=== PATIENT | female | born 1985 | race Caucasian/White ===

== ENCOUNTER 2018-04-03 02:49 | Emergency (ER) | payer OTHER ==
[~2018-04-03] VITALS: Ht 165.1 cm; Wt 77.1 kg
[~2018-04-03 02:49] MED LIST: AMOXICILLIN250 MG PO; AMOXICILLIN500 M2 PO; AMOXICILLIN500 MG PO; ANAPROX DS550 MG PO; AUGMENTIN 875875 MG PO; BACTRIM DS 8001 TA1 PO; BENADRYL25 MG PO; Bactroban Oint22 GM T; CATAFLAM50 MG PO; CIPRO500 MG PO; CIPROFLOXACIN500 MG PO; CLEOCIN150 MG PO; CLINDAMYCIN300 MG PO; CORTISPORIN SOL10 M1 OT; DARVOCET N 1001 TAB PO; DOXYCYCLINE100 M2 PO; EC NAPROSYN500 MG PO; FIORICET 325 MG1 TAB PO; FLEXERIL5 MG PO; FLONASE ALLERG9.9 ML NS; HYDROCODONE BIT1 T11 PO; IBU800 MG PO; IMITREX100 MG PO; IMITREX50 MG PO; KEFLEX500 MG PO; KETOROLAC10 MG PO; MECLIZINE25 MG PO; MEDROL DOSEPAK4 MG PO; MOTRIN800 MG; MOTRIN800 MG PO; MUCINEX SINUS-1 EAC3 PO; Motrin,Rufen800 MG PO; NAPROSYN500 MG PO; NKHM; PEN-VEE K500 MG PO; PERCOCET 325 MG1 TA2 PO; PERIOGARD 473473 ML PO; PHENERGAN25 M1 PO; PHENERGAN25 MG R; PREDNISONE20 MG PO; PRENATAL1 TA1 PO; ROBITUSSIN AC 10 MG/ PO; SEPTRA DS 800 M1 TAB PO; SUDAFED 12HR120 MG PO; TORADOL10 MG PO; TRAMADOL HCL50 MG PO; TRAMADOL50 MG PO; TRIMOX500 MG PO; ULTRAM50 MG PO; VICO10300 PO; ZOFRAN ODT4 MG SL; ZOVIRAX800 MG PO
[2018-04-03 02:50] VITALS: BP 113/65
[2018-04-03] MEDS ORDERED: PENICILLIN VK500 MG PO (03:28)
[2018-04-03] MEDS ORDERED: PENICILLIN-VK500 M1 PO (03:30)
== END 2018-04-03 03:58 | disposition home or self-care (01) ==
LOC: ED 02:49
DX: K04.7 Periapical abscess without sinus (principal); F17.200 Nicotine dependence, unspecified, uncomplicated; G43.909 Migraine, unspecified, not intractable, without status migrainosus; Z98.51 Tubal ligation status

== ENCOUNTER 2018-10-16 00:07 | Emergency (ER) | payer OTHER ==
[~2018-10-16] VITALS: Ht 165.1 cm; Wt 76.7 kg
--- NOTE | ~2018-10-16 | EKG ---
[place], [place] ELECTROCARDIOGRAM REPORT NAME: DAY NICE UNIT #: [id number] ROOM: DOCTOR: EPIPHANY DRAFT REPORT BIRTHDATE: [birth year] [facility] Test Date: 2018-10-16 Test Time: 03:12:04 Pat Name: DAY NICE Department: Room: Gender: F Turning Lathe Tender: : 1985 Requested By: DE CONTEH Order Number: [id number] Reading MD: James Rojas MD Measurements Intervals [place] Rate: 73 P: 3 [place]: 193 QRS: 73 QRSD: 95 T: 14 QT: 402 QTc: 443 Interpretive Statements Sinus rhythm Nonspecific T abnormalities, anterior leads Electronically Signed On 10-17-2018 4:44:29 PST by James Rojas MD CM:EKGRPT:ELECTROCARDIOGRAM REPORT [id number] DE CONTEH MD EPIPHANY DRAFT REPORT DE CONTEH MD
--- NOTE | ~2018-10-16 | EKG ---
[place], [place] ELECTROCARDIOGRAM REPORT NAME: DAY NICE UNIT #: [id number] ROOM: DOCTOR: EPIPHANY DRAFT REPORT BIRTHDATE: [birth year] [facility] Test Date: 2018-10-16 Test Time: 00:11:05 Pat Name: DAY NICE Department: Room: Gender: F Marketing Agent: : 1985 Requested By: DE CONTEH Order Number: [id number] Reading MD: James Rojas MD Measurements Intervals [place] Rate: 90 P: 64 [place]: 174 QRS: 72 QRSD: 99 T: 41 QT: 370 QTc: 453 Interpretive Statements Sinus rhythm Borderline T abnormalities, anterior leads Baseline wander in lead(s) III,aVL,V3 Electronically Signed On 10-17-2018 4:43:45 PST by James Rojas MD CM:EKGRPT:ELECTROCARDIOGRAM REPORT [id number] DE CONTEH MD EPIPHANY DRAFT REPORT DE CONTEH MD
[~2018-10-16 00:07] MED LIST changes: +PENICILLIN VK500 MG PO; +PENICILLIN-VK500 M1 PO
[2018-10-16 00:10] VITALS: BP 112/69
[2018-10-16 00:22] LABS: BASO % 0.3 % (0.0-1.0); EOS # 0.2 10*3/uL (0.0-0.4); EOS % 1.5 % (1.0-4.0); HEMATOCRIT 41.8 % (37.0-47.0); HEMOGLOBIN 14.9 g/dl (12.0-16.0); LYMPH # 3.8 10*3/uL (1.3-4.4); LYMPH % 31.3 % (27.0-41.0); MEAN CELL VOLUME 89.1 fl (81.0-99.0); MEAN CORPUSCULAR HGB 31.8 pg (27.0-31.0); MEAN CORPUSCULAR HGB CONC 35.6 g/dl (33.0-37.0); MEAN PLATELET VOLUME 10.4 fl (9.6-12.3); MONO # 0.7 10*3/uL (0.1-1.0); MONO % 5.5 % (3.0-9.0); NEUT # 7.4 10*3/uL (2.3-7.9); NEUT % 61.2 % (47.0-73.0); PLATELET COUNT AUTOMATED 199 10*3/uL (130-400); RED BLOOD COUNT 4.69 10*6/uL (4.10-5.10); RED CELL DISTRI WIDTH 11.9 % (0-14.5); WHITE BLOOD COUNT 12.1 10*3/uL (4.8-10.8)
[2018-10-16 00:33] LABS: ACT PARTIAL THROMBO TIME 24.3 SECONDS (20.8-31.5)
[2018-10-16 00:40] LABS: ALBUMIN 3.9 gm/dl (3.1-4.5); ALKALINE PHOSPHATASE 72 U/L (45-117); BUN 20 mg/dl (7-24); CHLORIDE 105 mmol/L (98-107); POTASSIUM 3.3 mmol/L (3.5-5.1); SGOT/AST 12 IU/L (3-35); SGPT/ALT 20 U/L (12-78); SODIUM 138 mmol/L (136-145); TOTAL PROTEIN 7.9 gm/dL (6.4-8.2)
[2018-10-16 00:45] LABS: TROPONIN I < 0.015 ng/ml (<0.045)
[2018-10-16 02:01] LABS: BILIRUBIN NEGATIVE (NEGATIVE); BLOOD NEGATIVE (NEGATIVE); CLARITY SL CLOUDY (CLEAR); COLOR YELLOW (YELLOW); GLUCOSE NEGATIVE (NEGATIVE); KETONE NEGATIVE (NEGATIVE); LEUKO ESTERASE NEGATIVE (NEGATIVE); NITRITE NEGATIVE (NEGATIVE); UROBILINOGEN 0.2 E.U./dl (0.2-1.0)
[2018-10-16 02:57] LABS: BACTERIA 1+; EPITHELIAL CELLS TNTC; RBC 0-2 rbc/hpf (0-2)
== END 2018-10-16 03:35 | disposition home or self-care (01) ==
LOC: ED 00:07
PROVIDERS: Emergency Medicine Emergency Medical Services
DX: M94.0 Chondrocostal junction syndrome [Tietze] (principal); R82.71 Bacteriuria; G43.909 Migraine, unspecified, not intractable, without status migrainosus; F17.200 Nicotine dependence, unspecified, uncomplicated

== ENCOUNTER 2022-09-17 14:13 | Emergency (ER) | payer OTHER ==
[~2022-09-17] VITALS: Ht 165.1 cm; Wt 72.6 kg
[2022-09-17 14:23] VITALS: BP 121/56
== END 2022-09-17 19:06 | disposition home or self-care (01) ==
LOC: ED 14:13
DX: S89.92XA Unspecified injury of left lower leg, initial encounter (principal); Z98.51 Tubal ligation status; W22.8XXA Striking against or struck by other objects, initial encounter; Y93.89 Activity, other specified; Y92.89 Other specified places as the place of occurrence of the external cause; Y99.8 Other external cause status

== ENCOUNTER 2025-06-28 16:07 | Emergency (ER) | payer OTHER ==
[2025-06-28] MEDS ORDERED: SUBOXONE 2 MG-1 EACH SL (16:19)
[2025-06-28] MEDS ORDERED: IOHEXOL 300 MG/ML 100 ML VIAL IV ONE (17:05)
[2025-06-28] MEDS ORDERED: IOHEXOL 350 MG/ML 100 ML VIAL IV ONE (17:20)
[2025-06-28] MEDS ORDERED: SODIUM CHLORIDE 0.9% 100 ML BAG IV ONE (17:20)
[2025-06-28 17:37] LABS: BUN 13 mg/dl (9-23)
[2025-06-28 17:46] LABS: BASO # 0.0 10*3/uL (0.0-0.1); BASO % 0.4 % (0.0-1.0); EOS # 0.2 10*3/uL (0.0-0.4); EOS % 1.8 % (1.0-4.0); MEAN CELL VOLUME 91.4 fl (81.0-99.0); MEAN CORPUSCULAR HGB 31.7 pg (27.0-31.0); MEAN PLATELET VOLUME 10.4 fl (9.6-12.3); MONO # 0.4 10*3/uL (0.1-1.0); MONO % 5.1 % (3.0-9.0); NEUT # 5.4 10*3/uL (2.3-7.9); NEUT % 63.7 % (47.0-73.0); NUCLEATED RED BLOOD CELL 0.0 % (0.0-0.0); NUCLEATED RED BLOOD CELL 0.0 10*3/uL (0.0-0.0); PLATELET COUNT AUTOMATED 178 10*3/uL (130-400); RED CELL DISTRI WIDTH 11.8 % (0-14.5)
[2025-06-28 19:40] VITALS: BP 114/72
[2025-06-28] MEDS ORDERED: MEDROL DOSEPAK4 MG PO (20:22)
== END 2025-06-28 20:50 | disposition home or self-care (01) ==
LOC: ED 16:07
PROVIDERS: Nurse Practitioner
DX: S83.91XA Sprain of unspecified site of right knee, initial encounter (principal); M25.461 Effusion, right knee; G43.909 Migraine, unspecified, not intractable, without status migrainosus; W24.0XXA Contact with lifting devices, not elsewhere classified, initial encounter; Y93.89 Activity, other specified; Y92.89 Other specified places as the place of occurrence of the external cause; Y99.8 Other external cause status